=== PATIENT | female | born 1945 | race Two or more races ===

== ENCOUNTER 2018-01-29 15:10 | Outpatient (CLI) | payer OTHER | END 2018-01-29 17:00 | disposition home or self-care (01) | LOC: MAMO-SONO 15:10 | DX: Z12.31 Encounter for screening mammogram for malignant neoplasm of breast (principal); Z87.898 Personal history of other specified conditions; N63.10 Unspecified lump in the right breast, unspecified quadrant; N63.20 Unspecified lump in the left breast, unspecified quadrant ==

== ENCOUNTER → 2019-01-26 | Outpatient (CLI) | payer OTHER | END | disposition home or self-care (01) | LOC: NUCLEAR 14:00 | DX: M81.0 Age-related osteoporosis without current pathological fracture (principal) ==

== ENCOUNTER 2019-03-09 10:38 | Outpatient (CLI) | payer OTHER | END 2019-03-09 10:40 | disposition home or self-care (01) | LOC: MAMO-SONO 10:38 | DX: Z12.31 Encounter for screening mammogram for malignant neoplasm of breast (principal); Z87.898 Personal history of other specified conditions; N60.01 Solitary cyst of right breast; N60.02 Solitary cyst of left breast ==

== ENCOUNTER 2021-02-27 13:31 | Outpatient (CLI) | payer OTHER | END 2021-02-27 13:32 | disposition home or self-care (01) | LOC: NUCLEAR 13:31 | PROVIDERS: ATTEND Internal Medicine Cardiovascular Disease | DX: M85.9 Disorder of bone density and structure, unspecified (principal); M81.0 Age-related osteoporosis without current pathological fracture ==

== ENCOUNTER 2021-03-17 07:39 | Outpatient (CLI) | payer OTHER | END 2021-03-17 07:57 | disposition home or self-care (01) | LOC: MAMO-SONO 07:39 | PROVIDERS: ATTEND Internal Medicine Cardiovascular Disease | DX: Z12.31 Encounter for screening mammogram for malignant neoplasm of breast (principal); Z87.898 Personal history of other specified conditions; C50.912 Malignant neoplasm of unspecified site of left female breast ==

== ENCOUNTER 2022-08-20 10:15 | Outpatient (CLI) | payer OTHER | END 2022-08-20 10:22 | disposition home or self-care (01) | LOC: MAMO-SONO 10:15 | PROVIDERS: ATTEND Internal Medicine Cardiovascular Disease | DX: C50.912 Malignant neoplasm of unspecified site of left female breast (principal) ==

== ENCOUNTER 2023-03-05 12:54 | Outpatient (CLI) | payer OTHER | END 2023-03-05 12:56 | disposition home or self-care (01) | LOC: NUCLEAR 12:54 | PROVIDERS: ATTEND Internal Medicine Rheumatology | DX: M85.80 Other specified disorders of bone density and structure, unspecified site (principal) ==

== ENCOUNTER 2024-01-03 12:19 | Outpatient (CLI) | payer OTHER | END 2024-01-03 12:24 | disposition home or self-care (01) | LOC: SONOGRAMA 12:19 | PROVIDERS: ATTEND Internal Medicine | DX: I20.9 Angina pectoris, unspecified (principal); E04.0 Nontoxic diffuse goiter ==

== ENCOUNTER 2024-06-04 13:54 | Outpatient (CLI) | payer OTHER | END 2024-06-04 14:00 | disposition home or self-care (01) | LOC: MAMO-SONO 13:54 | PROVIDERS: ATTEND Internal Medicine | DX: Z12.31 Encounter for screening mammogram for malignant neoplasm of breast (principal) ==

== ENCOUNTER 2025-08-23 10:40 | Outpatient (CLI) | payer OTHER | END 2025-08-23 10:44 | disposition home or self-care (01) | LOC: MAMO-SONO 10:40 | PROVIDERS: ATTEND Internal Medicine | DX: E04.1 Nontoxic single thyroid nodule (principal); R92.1 Mammographic calcification found on diagnostic imaging of breast; Z12.31 Encounter for screening mammogram for malignant neoplasm of breast ==

== ENCOUNTER → 2025-08-27 11:30 | Outpatient (CLI) | payer OTHER | END | disposition home or self-care (01) | LOC: NUCLEAR 11:30 | PROVIDERS: ATTEND Internal Medicine | DX: M85.80 Other specified disorders of bone density and structure, unspecified site (principal); M81.0 Age-related osteoporosis without current pathological fracture ==